=== PATIENT | female | born 1955 | race Two or more races ===

== ENCOUNTER 2021-07-23 11:53 | Emergency (ER) | payer MEDICAID, SELFPAY ==
[2021-07-23 12:30] VITALS: BP 170/56; PULSE 66; RESP 18; TEMP 36.7; O2SAT 98; BMI 29.2
[2021-07-23 15:54] LABS: MANUAL DIFF FLAG NO
[2021-07-23 15:55] LABS: Basophils Percent Auto 0.4 % (0-2); Eosinophils Absolute Auto 0.1 X10*3/uL (0.0-0.4); Eosinophils Percent Auto 2.1 % (0-4); Hematocrit 32.2 % (37-47); Hemoglobin 10.7 g/dl (12.0-16.0); Imm Gran Abs Auto 0.02 X10*3/uL (0.00-0.03); Imm Gran Pct Auto 0.4 % (0.0-0.4); Lymphocytes Absolute Auto 1.7 X10*3/uL (1.2-4.9); Lymphocytes Percent Auto 28.9 % (20-40); Mean Corpuscular HGB Conc 33.2 g/dl (31.0-35.0); Mean Corpuscular Hemoglobin 30.7 pg (27.0-33.0); Mean Corpuscular Volume 92.3 fL (80-98); Mean Platelet Volume 9.7 fL (9.4-12.3); Monocytes Absolute Auto 0.5 X10*3/uL (0.1-1.2); Monocytes Percent Auto 8.6 % (2-11); Neutrophils Absolute Auto 3.4 X10*3/uL (2.0-8.3); Neutrophils Percent Auto 59.6 % (45-73); Platelet Count 254 X10*3/uL (160-400); Red Blood Count 3.49 X10*6/uL (4.20-5.50); Red Cell Distribution Width 12.6 % (11.0-16.0); White Blood Count 5.7 X10*3/uL (4.8-10.8)
[2021-07-23 16:11] LABS: Alanine Aminotransferase 14 U/L (0-31); Albumin Level 4.4 g/dL (3.5-5.0); Alkaline Phosphatase 106 U/L (39-117); Anion Gap 14 (12-20); Aspartate Amino Transferase 19 U/L (5-31); Bilirubin Total 0.2 mg/dL (0.0-1.0); Blood Urea Nitrogen 11 mg/dL (9-16); Calcium 9.5 mg/dL (8.4-10.2); Carbon Dioxide 28 mmol/L (22-29); Chloride 104 mmol/L (96-108); Creatinine Clr Calc Pharmacy 70.7; Estimated Glomerular Filt Rate > 60; Glucose Random 89 mg/dL (60-115); Potassium 4.7 mmol/L (3.3-5.1); Sodium 141 mmol/L (135-145); Total Protein 7.7 g/dL (6.5-8.0)
--- NOTE | 2021-07-23 16:55 | ED.GENADULT ---
HPI - General Adult General Chief complaint: General Medical Stated complaint: back pain Time Seen by Provider: 07/23/21 16:41 Source: patient Mode of arrival: ambulatory Limitations: no limitations History of Present Illness HPI narrative: Patient history of vertigo and low back pain history of lung cancer status post chemo and radiation treatment stable from cancer point of it comes here with complaints of vertigo feeling for last 2-3 days similar to that in the past feel off balance sometimes no nausea no vomiting also complaining of low back pain which is going on for long time no acute increase in the low back pain take ibuprofen for pain just not helping her no focal weakness or paresis the Related Data Previous Rx's Medication Instructions Recorded meclizine 12.5 mg tablet 12.5 mg PO TID PRN #20 tab 07/23/21 tramadol 50 mg tablet 50 mg PO Q6H PRN #20 tab 07/23/21 Allergies Allergy/AdvReac Type Severity Reaction Status Date / Time No Known Allergies Allergy Verified 07/23/21 12:34 Review of Systems Review of Systems: Yes all other systems are reviewed and are negative [facility] Past Medical History Medical History Cardiomyopathy Hypertension Lung cancer Social History Social History Advance Directives: No Advance Directives Information Provided: No Patient : No Physical Exam Vital Signs: Vital Signs: Last Vital Signs Temp 98.1 F 07/23/21 12:30 Pulse 66 07/23/21 12:30 Resp 18 07/23/21 12:30 BP 170/56 H 07/23/21 12:30 Pulse Ox 98 07/23/21 12:30 Body Mass Index 29.2 Patient alert oriented x3 ambulatory with slight dizziness. HEENT pupils equal reacting to light EOMI no nystagmus no pallor or icterus. Tympanic membrane intact bilateral Neck is supple no lymphadenopathy. Lungs; clear to auscultation bilateral. Heart; RRR no murmur or gallop. Abdomen; soft nontender not distended. Extremities; all peripheral pulses palpable no pedal edema Back: Diffuse tenderness lumbar spine area no focal spinal tenderness good range of movement SLR negative bilateral Neuro; alert orient x3 no cerebellar signs no focal weakness ambulatory in steady gait with slight dizziness Medical Decision Making MDM Narrative Medical decision making narrative: Patient with benign positional vertigo with chronic back pain labs are stable discharge her home on meclizine and tramadol Lab Data Lab results reviewed: Yes I reviewed the patient's lab results. Result diagrams: 07/23/21 15:33 07/23/21 15:33 Labs: Lab Results 07/23/21 07/23/21 Range/Units 15:33 15:33 WBC 5.7 (4.8-10.8) X10*3/uL RBC 3.49 L (4.20-5.50) X10*6/uL Hgb 10.7 L (12.0-16.0) g/dl Hct 32.2 L (37-47) % MCV 92.3 (80-98) fL MCH 30.7 (27.0-33.0) pg MCHC 33.2 (31.0-35.0) g/dl RDW 12.6 (11.0-16.0) % Plt Count 254 (160-400) X10*3/uL MPV 9.7 (9.4-12.3) fL Immature Gran % (Auto) 0.4 (0.0-0.4) % Neut % (Auto) 59.6 (45-73) % Lymph % (Auto) 28.9 (20-40) % [place] % (Auto) 8.6 (2-11) % Eos % (Auto) 2.1 (0-4) % Baso % (Auto) 0.4 (0-2) % Lymph # (Auto) 1.7 (1.2-4.9) X10*3/uL [place] # (Auto) 0.5 (0.1-1.2) X10*3/uL Eos # (Auto) 0.1 (0.0-0.4) X10*3/uL Baso # (Auto) 0.0 (0.0-0.2) X10*3/uL Abs Immat Gran (auto) 0.02 (0.00-0.03) X10*3/uL Absolute Neuts (auto) 3.4 (2.0-8.3) X10*3/uL Absolute Nucleated RBC 0.000 (0.0-0.012) X10*3/uL Nucleated RBC % (auto) 0.0 (0.0-0.2) /100WBC Sodium 141 (135-145) mmol/L Potassium 4.7 (3.3-5.1) mmol/L Chloride 104 (96-108) mmol/L Carbon Dioxide 28 (22-29) mmol/L Anion Gap 14 (12-20) BUN 11 (9-16) mg/dL Creatinine 0.72 (0.5-1.4) mg/dL Estim Creat Clear Calc 70.7 Estimated GFR > 60 Random Glucose 89 (60-115) mg/dL Calcium 9.5 (8.4-10.2) mg/dL Total Bilirubin 0.2 (0.0-1.0) mg/dL AST 19 (5-31) U/L ALT 14 (0-31) U/L Alkaline Phosphatase 106 (39-117) U/L Total Protein 7.7 (6.5-8.0) g/dL Albumin 4.4 (3.5-5.0) g/dL Discharge Plan Discharge Clinical Impression: Vertigo, Chronic back pain Patient Disposition: Home, Self-Care Instructions: Vertigo (ED), Chronic Back Pain (DC) Additional Instructions: Take medication for dizziness as advised Tramadol for severe back pain Follow-up with your PCP [place] [facility] seg?n lo recomendado. Tramadol para el dolor de espalda phil Seguimiento con ibrahim PCP Prescriptions: New meclizine 12.5 mg tablet 12.5 mg PO TID PRN (Reason: dizziness) Qty: 20 RF: 0 tramadol 50 mg tablet 50 mg PO Q6H PRN (Reason: pain) Qty: 20 RF: 0 Discharge Date/Time: 07/23/21 17:59 Print Language: Hungarian
[2021-07-23] MEDS: Meclizine HCl 12.5 MG TABLET PO (17:59)
== END 2021-07-23 17:59 | disposition home or self-care (01) ==
PROVIDERS: Emergency Provider Internal Medicine
DX: R42 Dizziness and giddiness (principal); G89.29 Other chronic pain; M54.9 Dorsalgia, unspecified; I10 Essential (primary) hypertension; Z85.118 Personal history of other malignant neoplasm of bronchus and lung; Z92.21 Personal history of antineoplastic chemotherapy; Z92.3 Personal history of irradiation
CPT/HCPCS: 36415; 80053; 85025; 99282; 99283

== ENCOUNTER 2021-09-14 12:24 | Emergency (ER) | payer MEDICAID, SELFPAY ==
--- NOTE | ~2021-09-14 | XR_ITS ---
EXAMINATION: XR FOOT, RIGHT XR TIBIA/FIBULA, RIGHT CLINICAL INFORMATION: Fall. Injury. COMPARISON: None TECHNIQUE: 4 views of the right foot. 2 views of the right tibia/fibula. FINDINGS: Right foot: No fracture or dislocation. Alignment is anatomic. Mild degenerative change throughout the interphalangeal joints and at the first metatarsophalangeal joint with sclerosis and small osteophytes. No ankle joint effusion. Prominent Achilles heel spur. Right tibia/fibula: No fracture or cortical disruption. Bony exuberance at the tibial tuberosity likely from previous chronic prior repetitive trauma. Appropriate alignment of the knee. The soft tissues are unremarkable. XR/XR foot RT 2V IMPRESSION: No acute fracture or malalignment involving the right tibia/fibula or foot. Degenerative change.
--- NOTE | ~2021-09-14 | XR_ITS ---
EXAMINATION: XR FOOT, RIGHT XR TIBIA/FIBULA, RIGHT CLINICAL INFORMATION: Fall. Injury. COMPARISON: None TECHNIQUE: 4 views of the right foot. 2 views of the right tibia/fibula. FINDINGS: Right foot: No fracture or dislocation. Alignment is anatomic. Mild degenerative change throughout the interphalangeal joints and at the first metatarsophalangeal joint with sclerosis and small osteophytes. No ankle joint effusion. Prominent Achilles heel spur. Right tibia/fibula: No fracture or cortical disruption. Bony exuberance at the tibial tuberosity likely from previous chronic prior repetitive trauma. Appropriate alignment of the knee. The soft tissues are unremarkable. XR/XR tibia fibula RT 2V IMPRESSION: No acute fracture or malalignment involving the right tibia/fibula or foot. Degenerative change.
[2021-09-14 13:10] VITALS: BP 153/95; PULSE 80; RESP 18; TEMP 36.7; O2SAT 98; BMI 28.3
--- NOTE | 2021-09-14 16:00 | ED_ITS ---
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 There was no head strike or loss of consciousness. Patient has pain over the lateral ankle with some pain with weight-bearing Related Data Previous Rx's Medication Instructions Recorded meclizine 12.5 mg tablet 12.5 mg PO TID PRN #20 tab 07/23/21 tramadol 50 mg tablet 50 mg PO Q6H PRN #20 tab 07/23/21 cane #1 ea 09/14/21 naproxen 375 mg tablet 375 mg PO BID PRN #15 tab 09/14/21 Allergies Allergy/AdvReac Type Severity Reaction Status Date / Time No Known Allergies Allergy Verified 09/14/21 13:10 Review of Systems Review of Systems: Yes all other systems are reviewed and are negative Constitutional: Constitutional: Reports no additional constitutional complaints, Denies body ache(s), Denies chills, Denies fever(s), Denies headache(s) and Denies weakness Eyes: Eyes: Reports no additional eye complaints and Denies change in vision ENT: Reports system reviewed and no additional complaints, except as documented, Denies dizziness, Denies headache(s), Denies nasal congestion, Denies nasal discharge and Denies neck pain Cardiovascular: Cardiovascular: Reports no additional cardiovascular complaints, Denies chest pain, Denies leg edema and Denies dyspnea Respiratory: Respiratory: Reports no additional respiratory complaints, Denies cough and Denies dyspnea Gastrointestinal: Gastrointestinal: Reports no additional gastrointestinal complaints, Denies abdominal pain, Denies diarrhea, Denies nausea and Denies vomiting Genitourinary: Genitourinary: Reports no additional female genitourinary complaints and Denies urinary incontinence Musculoskeletal: Musculoskeletal: Reports no additional musculoskeletal complaints, Denies back pain, Reports arthralgias, Reports joint swelling, Denies neck pain, Denies numbness and Denies tingling Integumentary/Breasts: Skin/Breast: Reports system reviewed and no additional complaints, except as docu and Denies rash Neurologic: Reports system reviewed and no additional complaints, except as documented, Denies Abnormal speech present, Denies dizziness, Denies headache(s), Denies numbness, Denies tingling and Denies weakness PMFSH Past Medical History Attestation statement: The following information was validated with the patient. Source: old records reviewed and nursing notes reviewed Medical History Cardiomyopathy Hypertension Lung cancer Social History Social History Advance Directives: No Advance Directives Information Provided: Yes Patient : No Physical Exam Vital Signs: Vital Signs: Last Vital Signs Temp 98.1 F 09/14/21 13:10 Pulse 80 09/14/21 13:10 Resp 18 09/14/21 13:10 BP 153/95 H 09/14/21 13:10 Pulse Ox 98 09/14/21 13:10 BMI result Body Mass Index 28.3 Const: General: cooperative, healthy appearing, comfortable and no acute distress Orientation/consciousness: patient oriented x3 Limitations: no limitations HENMT: Head: Yes normal to inspection Ears: hearing grossly normal bilaterally General nose exam: Normal external nose present Face and sinus: Yes normal facial exam Mouth: Normal oral and palatal mucosa present Throat: Yes posterior oropharynx normal Eyes: General: appearance normal, both eyes and all related structures Pupils: Equal, round and reactive pupils present Neck: Neck: Yes normal visual inspection Chest: Chest palpation & inspection: normal inspection of the chest Resp: Effort & Inspection: normal respiratory effort Auscultation: clear to auscultation bilaterally Cardio: Rate: regular rate Rhythm: regular rhythm Peripheral pulses: Peripheral pulses 2+ throughout GI: Inspection: Yes normal to inspection Palpation (GI): Soft to palpation and nontender Auscultation: normal bowel sounds Back/Spine/Pelvis: Thoracic/Lumbar Spine: thoracic and lumbar spine normal to inspection Skin: General skin exam: no rashes or lesions noted Neuro: General: patient oriented x3, no focal motor deficits and normal sensation to monofilament Cranial nerves: Yes Equal, round and reactive pupils present Cognition (Neuro): normal cognition Speech: No Abnormal speech present Gait exam (Neuro): Normal gait present Motor exam (neuro): 5/5 motor strength present throughout Extrem: Other: there is tenderness and some mild swelling over the right lateral ankle with full range of motion. No tenderness over the medial aspect or posterior aspect. No calf tenderness. Negative Cho sign. No l igamental laxity. Palpable DP and PT pulses. No ecchymosis, warmth or redness. There is no tenderness over the foot General: Yes normal to inspection Course Course Course Narrative: 66-year-old female here with inversion injury to the right ankle after falling. No head strike or loss of consciousness. On exam she has tenderness and mild swelling over the lateral aspect of the ankle. The x-ray show no bony abnormality. Likely ankle sprain. Patient placed in air splint. she can not use crutches so as asking for prescription for a cane which was sent to her pharmacy. We reviewed rice. Reviewed worrisome signs and symptoms of when to return to the emergency department. Comfortable discharge home. MDM - Extremity Injury (Lower) Medical Records Attestation: I reviewed the patient's medical records. Lab Data Attestation: I reviewed the patient's lab results. Imaging Data right ankle/foot/tibia/fibula x-ray: Attestation: I personally reviewed and interpreted this imaging study as follows: Radiologist's impression: FINDINGS: Right foot: No fracture or dislocation. Alignment is anatomic. Mild degenerative change throughout the interphalangeal joints and at the first metatarsophalangeal joint with sclerosis and small osteophytes. No ankle joint effusion. Prominent Achilles heel spur. Right tibia/fibula: No fracture or cortical disruption. Bony exuberance at the tibial tuberosity likely from previous chronic prior repetitive trauma. Appropriate alignment of the knee. The soft tissues are unremarkable.? XR/XR foot RT 2V IMPRESSION: No acute fracture or malalignment involving the right tibia/fibula or foot. Degenerative change.? Procedures Procedure Narrative Procedure Narrative: air splint here Discharge Plan Discharge Clinical Impression: Ankle sprain and strain Patient Disposition: Home, Self-Care Instructions: Ankle Sprain (ED) Additional Instructions: Hielo en la sharlene. F?lili para mayor comodidad fannie el d?a. elevar la extremidad. Trate de mantenerse alejado usando el montez?n. Prescriptions: New (DME) cane Device See Rx Instructions .Route Qty: 1 RF: 0 naproxen 375 mg tablet 375 mg PO BID PRN (Reason: pain) Qty: 15 RF: 0 No Action meclizine 12.5 mg tablet 12.5 mg PO TID PRN (Reason: dizziness) Qty: 20 RF: 0 tramadol 50 mg tablet 50 mg PO Q6H PRN (Reason: pain) Qty: 20 RF: 0 Referrals: Physician,Unknown J [Primary Care Provider] - 2 days Interventions: ED Discharge Assessment Last Done: 09/14/21 16:51 Discharge Date/Time: 09/14/21 16:52 Print Language: Yi
[2021-09-14] MEDS: Ketorolac Tromethamine 30 MG/ML VIAL IM (16:26)
== END 2021-09-14 16:52 | disposition home or self-care (01) ==
PROVIDERS: Emergency Provider Emergency Medicine
DX: S96.911A Strain of unspecified muscle and tendon at ankle and foot level, right foot, initial encounter (principal); S93.401A Sprain of unspecified ligament of right ankle, initial encounter; I10 Essential (primary) hypertension; W19.XXXA Unspecified fall, initial encounter; Y93.9 Activity, unspecified; Y92.9 Unspecified place or not applicable; Y99.9 Unspecified external cause status
CPT/HCPCS: 73590; 73620; 96372; 99284; J1885

== ENCOUNTER 2021-09-27 09:01 | Outpatient (REF) | payer MEDICAID, SELFPAY ==
--- NOTE | ~2021-09-27 | CT_ITS ---
EXAMINATION: CT CHEST WITH CONTRAST CLINICAL INFORMATION: Breast cancer COMPARISON: CT chest dated 01/28/2015 TECHNIQUE: Multidetector volumetric CT imaging of the chest was obtained after the administration of 65 mL of Omnipaque 350 intravenous contrast without immediate adverse reactions. Axial MIP volume rendering provided. Sagittal and coronal reformatted images were obtained. This CT examination was performed using dose optimization techniques as appropriate, variously including the following: *Automated exposure control *Adjustment of mA and/or kV according to patient size (this includes techniques or standardized protocols for targeted exams where dose is matched to indication/reason for exam; i.e. extremities or head) *Use of iterative reconstruction technique DLP: 123 mGy-cm FINDINGS: LUNGS: There is pleuroparenchymal scarring along the medial left upper lobe and medial aspect of the superior segment of the left lower lobe with accompanying volume loss of the left lung, mild. No suspicious pulmonary nodules. No evidence of infective consolidation. MEDIASTINUM: Normal heart size. No mediastinal or hilar adenopathy. Great vessels normal caliber. PLEURA: There is no pleural effusion. No pleural mass or thickening. CHEST WALL/AXILLA: No axillary adenopathy. Asymmetric tissue present within the left breast. UPPER ABDOMEN: There is a 3.0 cm simple cyst in the upper pole left kidney. There are couple stable cyst within the right lobe of liver. OSSEOUS STRUCTURES: No acute or suspicious osseous abnormalities. CT/CT chest w con IMPRESSION: * Pleuroparenchymal scarring present along the medial left upper lobe and medial superior segment left lower lobe, potentially radiation related. * No suspicious pulmonary nodules. * Asymmetric tissue in the left breast may correspond to the patient's breast cancer in keeping with the provided history, or possibly postsurgical changes. Unfortunately, no additional history is provided.
[2021-09-27 10:07] LABS: Anion Gap 10 (12-20); Blood Urea Nitrogen 17 mg/dL (9-16); Calcium 9.6 mg/dL (8.4-10.2); Carbon Dioxide 31 mmol/L (22-29); Chloride 103 mmol/L (96-108); Estimated Glomerular Filt Rate > 60; Glucose Random 104 mg/dL (60-115); Potassium 4.3 mmol/L (3.3-5.1); Sodium 140 mmol/L (135-145)
[2021-09-27] MEDS: iohexoL 350 MG/ML 100 ML INFUS..BTL IV (11:06)
== END 2021-09-27 09:02 | disposition home or self-care (01) ==
LOC: HO.CT 09:01
PROVIDERS: Visit Provider Nurse Practitioner Family
DX: C34.92 Malignant neoplasm of unspecified part of left bronchus or lung (principal)
CPT/HCPCS: 36415; 71260; 80048; Q9967

== ENCOUNTER 2021-09-29 07:53 | Outpatient (RCR) | payer MEDICAID, SELFPAY | END 2021-10-06 11:54 | disposition home or self-care (01) | LOC: HO.PT 07:53 | PROVIDERS: PCP Nurse Practitioner Family; Visit Provider Nurse Practitioner Family | DX: R42 Dizziness and giddiness (principal) | CPT/HCPCS: 97162 ==

== ENCOUNTER 2021-11-28 12:59 | Outpatient (REF) | payer MEDICAID, SELFPAY ==
--- NOTE | ~2021-11-28 | MM_ITS ---
EXAMINATION: MM SCREENING DIGITAL BREAST TOMOSYNTHESIS, BILATERAL CLINICAL INFORMATION: Screening. Asymptomatic. The lifetime risk of breast cancer based on the Tyrer-Cuzick Model is 4%. COMPARISON: Mammography: 08/27/2014 TECHNIQUE: Digital breast tomosynthesis is performed in both the craniocaudal and mediolateral oblique views along with computer-aided detection (CAD). Synthesized 2D images are generated from the tomosynthesis. Additional left MLO view is provided. FINDINGS: There are scattered areas of fibroglandular density (ACR BI-RADS breast composition Category b). There are no significant masses, abnormal calcifications, or other abnormalities. Parenchymal pattern is similar to prior studies. No developing density or interval architectural abnormality. There are no significant changes. MM/MM tomosynthesis screening BI IMPRESSION: No mammographic evidence of malignancy. ASSESSMENT: BI-RADS 1: Negative RECOMMENDATION: Routine annual mammography screening. This patient's information was entered into a reminder system with a target due date for their next mammogram.
== END 2021-11-28 13:00 | disposition home or self-care (01) ==
LOC: HO.MAMMO 12:59
PROVIDERS: PCP Nurse Practitioner Family; Visit Provider Nurse Practitioner Family
DX: Z12.31 Encounter for screening mammogram for malignant neoplasm of breast (principal)
CPT/HCPCS: 77063; 77067